=== PATIENT | female | born 1955 | race Caucasian/White ===

== ENCOUNTER → 2017-10-09 | Outpatient (CLI) | payer BC ==
--- NOTE | 2017-10-09 15:07 | US ---
EXAM DESCRIPTION: Soft Tissue,Head/Neck: ULTRASOUND. CLINICAL HISTORY: CERVICAL LYMPHADENOPATHY. Swelling on the right side of the neck x 3 weeks. COMPARISON: None Available. TECHNIQUE: Transcutaneous scanning: Valdes-scale and Doppler modes. FINDINGS: Circumscribed hypoechoic oval-shaped mass in the left neck with central echogenicity measuring 1.5 x 0.8 x 1.8 cm with central vascularity consistent with a lymph node. Similar appearing mass measures 2.4 x 1.7 x 1.1 cm. Similar-appearing smaller masses nearby. Palpable mass in the right submandibular region has a similar appearance measuring 1.8 x 1.0 x 2.5 cm with central vascularity. Nearby similar-appearing mass measuring 1.5 x 1.1 x 0.6 cm but no central vascularity. Similar appearing, smaller masses nearby. No distinct cyst, no large calcification, no parenchymal edema. IMPRESSION: Bilateral lymph nodes visualized. Largest lymph node on the right 2.4 cm and 2.3 cm on the left. Consider follow-up CT scan of the neck with IV contrast or MRI scan with contrast. Electronically signed by: Edgar Moore MD 10/09/2017 3:06 PM CDT
== END ==
LOC: US 09:38
PROVIDERS: ATTEND Nurse Practitioner Family
DX: R59.0 Localized enlarged lymph nodes (principal)

== ENCOUNTER → 2018-06-23 | Outpatient (CLI) | payer BC ==
--- NOTE | 2018-06-24 07:59 | MRI ---
EXAM DESCRIPTION: Cervical Spine CLINICAL HISTORY: CERVICAL RADICULOPATHY RT SIDE WITH DEGENERATIVE CHANGES ON XRAY COMPARISON: None. TECHNIQUE: Multiplanar MRI of the cervical spine was performed without contrast. FINDINGS: Cervical vertebral body heights are maintained. Mild straightening of the normal cervical lordosis. Mild increased signal on T2 and STIR weighted sequences seen in the osseous structures of the T1-T2 facet joint. Curvature of the cervical thoracic junction with convexity towards the left is seen. Desiccation of the disc spaces throughout the cervical spine is seen with mild anterior disc osteophytic ridging from C4 through C6. Craniocervical junction is maintained. A normal basilar flow void is seen. Spinal cord shows normal MRI signal. The neck soft tissues are unremarkable. C1-2 and craniocervical junction Unremarkable C2-3 Mild left facet hypertrophy without spinal canal stenosis or foraminal encroachment. C3-4 Mild to moderate left facet hypertrophic and degenerative changes are seen without spinal canal stenosis or foraminal encroachment. C4-5 Moderate left facet hypertrophic and degenerative changes are seen with mild bilateral uncovertebral joint disc osteophytic ridging resulting in moderate left greater than right foraminal encroachment. C5-6 Mild diffuse disc space narrowing and less than 2 mm broad-based ventral ridging disc osteophyte complex with mild posterior ligamentum flavum thickening results in mild spinal canal stenosis. The thecal sac measures 8 mm AP centrally. Moderate right greater than left uncovertebral joint disc osteophytic ridging is seen with severe bilateral foraminal encroachment. Mild marrow edema seen in the endplates around the disc space. C6-7 No significant findings. C7-T1 Mild bilateral facet hypertrophic and degenerative changes are seen without spinal canal stenosis or foraminal encroachment. T1-T2: Mild to moderate bilateral facet hypertrophic and degenerative changes are seen with moderate bilateral foraminal encroachment. IMPRESSION: Mild levocurvature of the cervicothoracic junction. Mild to moderate facet arthropathy primarily on the left from C2 through C5 is seen. Disc disease at C5-6 results in mild spinal canal stenosis with severe bilateral foraminal encroachment. Moderate left greater than right foraminal encroachment is seen at C4-5 secondary to disc disease and facet arthropathy. Modic type I degenerative endplate signal changes at C5-C6 are seen with probable stress reactive marrow edema involving the left T1-T2 facet joint. Electronically signed by: Main Edmond MD 06/24/2018 7:55 AM CDT
== END ==
LOC: MRI 08:20
PROVIDERS: ATTEND Nurse Practitioner Family
DX: M50.11 Cervical disc disorder with radiculopathy, high cervical region (principal); M50.121 Cervical disc disorder at C4-C5 level with radiculopathy; M48.02 Spinal stenosis, cervical region

== ENCOUNTER 2019-07-27 10:04 | Emergency (ER) | payer BC, OTHER ==
--- NOTE | 2019-07-27 10:34 | ED.PDOC ---
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 The owners say the dog has been vaccinated for rabies but not confirmed by any document thus far. She was bitten on her L calf. Denies fever but reports swelling to her calf as compared to the R Timing/Duration: yesterday Severity: moderate Location: extremities Associated Symptoms: fever, swelling/mass/lumps Allergies/Adverse Reactions: Allergies Propranolol Allergy (Verified 07/27/19 10:35) Home Medications: Ambulatory Orders Amoxicillin & Pot Clavulanate [Augmentin Tab] 875 mg PO BID #20 tab 07/27/19 Review of Systems - Review of Systems Constitutional: States: no symptoms reported EENTM: States: no symptoms reported Respiratory: States: no symptoms reported Cardiology: States: no symptoms reported Gastrointestinal/Abdominal: States: no symptoms reported Genitourinary: States: no symptoms reported Musculoskeletal: States: muscle pain Skin: States: lesions Neurological: States: no symptoms reported Family Medical History - Family History Mother Family History: Unknown Living Status: Unknown Physical Exam - Physical Exam General Appearance: Alert, No apparent distress Neck: non-tender, full range of motion, supple Respiratory: no respiratory distress Extremity: calf tenderness, other - L calf with 4 small punctures, no laceration, not visible ecchymosis. faint blush of erythema Departure - Departure Clinical Impression: Bite wound, Animal bite Disposition: Discharge to Home or Self Care Condition: Good Departure Forms: ED Discharge - Pt. Copy, Patient Portal Self Enrollment Instructions: DI for Animal Bites Referrals: Miriam Stein NP [Primary Care Provider] - 1-2 Weeks Prescriptions: Amoxicillin & Pot Clavulanate [Augmentin Tab] 875 mg PO BID #20 tab Home Medications: Ambulatory Orders Amoxicillin & Pot Clavulanate [Augmentin Tab] 875 mg PO BID #20 tab 07/27/19
[2019-07-27] MEDS: AMOXICILLIN & POT CLAVULANATE 875 MG TAB PO ONE (11:11)
[2019-07-27] MEDS ORDERED: BACITRACIN 0.9 GM UD PCKT ONE (11:12)
[2019-07-27 11:32] VITALS: BP 153/92; TEMP 97.9; O2SAT 98
[2019-07-27] MEDS ORDERED: AMOXICILLIN & POT CLAVULANATE 875 MG TAB PO SCH (21:00)
== END 2019-07-27 11:11 | disposition home or self-care (01) ==
LOC: ER 10:04
DX: S81.852A Open bite, left lower leg, initial encounter (principal); W54.0XXA Bitten by dog, initial encounter; Y99.0 Civilian activity done for income or pay

== ENCOUNTER → 2019-09-09 | Outpatient (CLI) | payer BC ==
--- NOTE | 2019-09-10 14:53 | CT ---
Study: CT Chest. Indication: SWELLING, LUMP FINDING-LEFT Technique: CT imaging of the chest obtained with and without intravenous administration of contrast. This exam was performed according to our departmental dose-optimization program, which includes automated exposure control, adjustment of the mA and/or kV according to patient size and/or use of iterative reconstruction technique. Comparison: None. Findings: Atherosclerosis great vessels. Heart size upper limits of normal. No pathologically enlarged lymphadenopathy. Degenerative changes of the spine noted. No consolidation, pleural effusion, or pneumothorax. Presumed external skin marker placed the left supraclavicular region. This site is difficult to evaluate due to elevation of the left arm above the head. No encapsulated subcutaneous mass identified. Impression: No consolidation. Atherosclerosis. Mild cardiomegaly. No definite mass lesion identified. Dedicated CT of the neck with IV contrast could better evaluate Electronically signed by: Scott Madsen MD 09/10/2019 2:51 PM CDT
--- NOTE | 2019-09-11 15:33 | US ---
EXAM DESCRIPTION: Carotid Duplex: ULTRASOUND. CLINICAL HISTORY: 64 years Female HYPERLIPIDEMIA COMPARISON: None. TECHNIQUE: Transcutaneous scanning utilizing arreguin-scale and Doppler modes to evaluate the bilateral carotid systems and vertebral arteries. Percentage of diameter of stenosis or no stenosis recorded will be based upon NASCET criteria. FINDINGS: Peak systolic/end diastolic (CM-Sec) CCA Right 77/12 Left 64/12. ICA Right proximal 43/13, mid 62/17. Left proximal 23/7, Distal 57/20. Vertebral Right 31/10 Left 32/13. ECA (PS Only) Right 38 left 35. ICA/CCA peak systolic ratio: Right 0.8 Left 0.9 ICA/CCA end diastolic ratio: Right 1.5 Left 1.6 Vertebral arteries: antegrade flow. Comments: Atherosclerotic calcifications bilaterally. Spectral broadening and color turbulent flow in the mid and distal right ICA. Spectral broadening in the distal left ICA. IMPRESSION: 1. Doppler evaluation of the bilateral carotid systems and vertebral arteries shows no hemodynamically significant stenoses (less than 70%). 2. No significant amount of plaque in the carotid arteries bilaterally. Bilateral vertebral arteries showed antegrade-cephalad flow. Electronically signed by: Edgar Moore MD 09/11/2019 3:32 PM CDT
== END ==
LOC: CT 09:29
PROVIDERS: ATTEND Nurse Practitioner Family
DX: R22.1 Localized swelling, mass and lump, neck (principal); I70.90 Unspecified atherosclerosis; I51.7 Cardiomegaly; E78.5 Hyperlipidemia, unspecified

== ENCOUNTER → 2019-09-20 | Outpatient (CLI) | payer BC ==
--- NOTE | 2019-09-20 16:08 | US ---
EXAM DESCRIPTION: Soft Tissue,Head/Neck: ULTRASOUND. CLINICAL HISTORY: 64 years Female SWELLING/LUMP FINDING LEFT COMPARISON: None Available. TECHNIQUE: Transcutaneous scanning: Valdes-scale and Doppler modes. FINDINGS: At the base of the left neck at the site of palpation, is a heterogeneous isoechoic and hypoechoic mass with mostly circumscribed margins measuring 3.4 x 2.0 x 1.7 cm. Nonvascular. No distinct cyst or fluid collection. No large calcifications. IMPRESSION: Most likely 3.4 cm lipoma in the base of the left neck corresponding to palpable mass. Electronically signed by: Edgar Moore MD 09/20/2019 4:06 PM CDT
== END ==
LOC: US 14:51
PROVIDERS: ATTEND Nurse Practitioner Family
DX: R22.1 Localized swelling, mass and lump, neck (principal)

== ENCOUNTER → 2020-04-04 | Outpatient (CLI) | payer BC ==
--- NOTE | 2020-04-06 08:42 | MAM ---
EXAM DESCRIPTION: 3D Screening BILATERAL : Digital Mammography. CLINICAL HISTORY: 64 years Female Z12.39 . No complaints. Remote family history of breast cancer. Menarche age unknown. Childbirth age 28. Menopause age 36. No HRT. Lifetime risk of developing breast cancer (Tyrer-Cuzick model)(%): 7.4. COMPARISON: Baseline study at this facility. No prior reports available. TECHNIQUE: Bilateral CC and MLO projection full-field images, digital tomosynthesis mammographic technique. Bilateral digital 2-D full-field MLO images. CAD available for 2-D images. FINDINGS: The breast parenchymal density pattern is: Scattered areas of fibroglandular density. Solitary microcalcifications and coarse calcifications bilaterally. No skin thickening or nipple retraction No focal, stellate mass or density, focal asymmetry , and no suspicious microcalcifications bilaterally. IMPRESSION: Benign exam. BIRAD CATEGORY: 2 BENIGN FINDINGS. RECOMMENDATIONS: FOLLOW UP: Routine digital bilateral mammographic screening, one year interval from March 2020. Written communication explaining the IMPRESSION and follow-up, will be mailed to the patient and referring health care provider. According to the [employer], yearly mammograms are recommended starting at age 40 and continuing as long as a woman is in good health. Any breast change noted on a breast self-exam should be reported promptly to the patient's healthcare provider. Breast MRI is recommended for women with an approximately 20-25% or greater lifetime risk of breast cancer, including women with a strong family history of breast or ovarian cancer and women who have been treated for Hodgkin's disease. A negative mammographic report should not delay tissue diagnosis in patients with significant clinical history or physical findings. Extremely dense breast tissue limits the sensitivity of digital mammography. Electronically signed by: Edgar Moore MD 04/06/2020 8:40 AM [facility]
== END ==
LOC: MAMMO 13:49
PROVIDERS: ATTEND Nurse Practitioner Family
DX: Z12.31 Encounter for screening mammogram for malignant neoplasm of breast (principal)